=== PATIENT | male | born 1950 | race Caucasian/White ===

== ENCOUNTER → 2022-03-28 | Outpatient (CLI) | payer MEDICARE, OTHER, SELFPAY ==
--- NOTE | 2022-03-28 06:51 | CT_ITS ---
PROCEDURE: CT RIGHT KNEE WITHOUT CONTRAST REASON FOR EXAM: Male, 71 years old. Preoperative planning for the MakoPlasty Robotic knee surgery. Knee pain. TECHNIQUE: Transaxial CT of the hip, knee and ankle were obtained. Coronal and sagittal reconstruction images of the knee were provided. Individualized dose optimization techniques were used for this CT. COMPARISON: None. FINDINGS: Standard protocol for the preoperative planning for the MakoPlasty robotic knee surgery was performed. There is mild osteoarthrosis of the hip and knee. CT/Extremity Lower without Contra IMPRESSION: Preoperative MakoPlasty Robotic knee surgical CT evaluation with findings as described above. Electronically Signed: Eric Whitten, at 10:35 EDT ,
== END | disposition home or self-care (01) ==
PROVIDERS: PCP Family Medicine; Referring Provider Orthopaedic Surgery; Visit Provider Orthopaedic Surgery
DX: M17.11 Unilateral primary osteoarthritis, right knee (principal)
CPT/HCPCS: 73700

== ENCOUNTER → 2022-04-04 | Outpatient (CLI) | payer MEDICARE, OTHER, SELFPAY ==
--- NOTE | 2022-04-04 12:05 | EKG12_ITS ---
Test Reason : PREOP Blood Pressure : / mmHG Vent. Rate : 057 BPM Atrial Rate : 057 BPM P-R Int : 184 ms QRS Dur : 096 ms QT Int : 432 ms P-R-T Axes : 041 -09 019 degrees QTc Int : 420 ms Sinus bradycardia Otherwise normal ECG Confirmed by CÉSAR EDWARDS, CHANELL ([id number]), newspaper or periodical editor CAESAR GILLIAM ([id number]) on 04/05/2022 8:03:06 AM Referred By: JAMAL Confirmed By:GERARDO LINDSEY MD
[2022-04-04 12:26] LABS: Absolute Lymphocyte Count 1.36 X10^3/uL (0.83-4.51); Absolute Neutrophil Count 3.3 X10^3/uL (2.0-7.7); Basophil# 0.06 X10^3/uL; Basophil% 1.1 % (0-1); Eosinophils% 3.6 % (0-5); Hematocrit 43.6 % (40-54); Hemoglobin 14.9 g/dL (13.0-16.5); Lymphocyte # 1.36 X10^3/ul (0.83-4.51); Lymphocyte % 24.3 % (19-41); Mean Corp Hgb Conc 34.2 g/dL (32-36); Mean Corpuscular Hgb 32.4 pg (27.0-32.0); Mean Corpuscular Volume 94.8 fL (80-94); Mean Platelet Vol. 8.7 fl (6.2-12.0); Monocyte# 0.69 X10^3/uL; Monocyte% 12.3 % (0-10); NRBC Flagged by Analyzer 0 % (0-5); Neutrophil # 3.28 X10^3/uL (2.7-7.7); Neutrophil % 58.5 % (47-70); Platelet Count 233 K/mm3 (150-450); RBC Distribution Width CV 11.9 % (11.6-14.6); RBC Distribution Width SD 41.4 fl (35.1-43.9); White Blood Count 5.6 K/mm3 (4.4-11.0)
[2022-04-04 12:55] LABS: ALB/GLOB Ratio 1.1 RATIO (0.9-2.4); AST(SGOT) 27 U/L (15-37); Alanine Aminotransfer ALT/SGPT 40 U/L (16-61); Albumin, Serum 3.6 g/dL (3.2-5.0); Alkaline Phosphatase 71 U/L (45-117); Anion Gap 5 (5-15); BUN 14 mg/dL (7-18); BUN/Creat Ratio 13.2 RATIO (10-20); Calcium,Total 8.7 mg/dL (8.5-10.1); Chloride 107 mmol/L (98-107); Cholesterol 163 mg/dL (200); Creatinine, Serum 1.06 mg/dL (0.70-1.30); EST Glomerular Filtration Rate 74 mL/min (>60); Est Glom Filt Rate - Afr Amer 89 mL/min (>60); Globulin 3.3 g/dL (2.2-4.2); Glucose 101 mg/dL (74-106); High Density Lipoprotein 57 mg/dL; Potassium 4.5 mmol/L (3.5-5.1); Protein, Total 6.9 g/dL (6.4-8.2); Sodium Level 141 mmol/L (136-145); Triglycerides 88 mg/dL; Very Low Density Lipoprotein 18 mg/dL (5-40)
== END | disposition home or self-care (01) ==
PROVIDERS: Physician Assistant; PCP Family Medicine; Visit Provider Orthopaedic Surgery
DX: Z01.810 Encounter for preprocedural cardiovascular examination (principal); E11.9 Type 2 diabetes mellitus without complications; I10 Essential (primary) hypertension
CPT/HCPCS: 36415; 80053; 80061; 83036; 85025; 93005

== ENCOUNTER → 2022-04-23 | Outpatient (CLI) | payer MEDICARE, OTHER, SELFPAY ==
--- NOTE | 2022-04-23 15:04 | RAD_ITS ---
STUDY: X-RAY CHEST REASON FOR EXAM: Male, 71 years old. ACUTE COUGH TECHNIQUE: PA and lateral. COMPARISON: 06/23/2017. FINDINGS: LUNGS: No consolidation. No pneumothorax. MEDIASTINUM: Unremarkable. CARDIAC SILHOUETTE: Not enlarged. BONES AND SOFT TISSUES: No acute abnormalities. RAD/Chest PA and Lateral IMPRESSION: No evidence of active intrathoracic disease. Electronically Signed: Lesia Maldonado MD at 7:56 EDT ,
== END | disposition home or self-care (01) ==
LOC: RAD 15:03
PROVIDERS: PCP Family Medicine; Referring Provider Physician Assistant; Visit Provider Physician Assistant
DX: R05.1 Acute cough (principal)
CPT/HCPCS: 71046

== ENCOUNTER → 2022-05-07 | Outpatient (CLI) | payer MEDICARE, OTHER, SELFPAY ==
--- NOTE | 2022-05-06 15:22 | KNEE_PTH ---
PATIENT: SWETA STERLING LOC: [facility] U#:[id number] AGE/SX: 71/M ROOM: RE05/07/[address]: Dr. Tyler Sher DO : 1950 BED: DIS: 05/07/2022 SPEC #: [id number] RECD: 05/07/22 14:21 STATUS: JOI REAlessandro #: [id number] JAQUELINE: 05/06/22 15:[address]: Tyler Sher DEPT: SURGICAL PATHOLOGY RECD BY: Annita Spaulding ENTERED: 05/08/22 11:48 SP TYPE: TOTAL KNEE OTHR DR: Dr. Elver Whitmore MD [facility] Tissues: Knee, NOS Procedures: Decalcification bone/plaque Surgery Specimen Level IV HEADER OPERATION: Right total knee arthroplasty PRE-OP DIAGNOSIS: Unilateral primary osteoarthritis, right knee TISSUE SUBMITTED: Right knee bone and tissue MICROSCOPIC DIAGNOSIS Bone and soft tissue, right knee, total knee replacement/resection: Pieces of bone with degenerative osteoarthritic changes. Fibroadipose tissue, fibroconnective tissue and reactive synovial tissue. RAMONE:adilia 05/13/2022 MICROSCOPIC DESCRIPTION Slides are reviewed. GROSS DESCRIPTION Received is one container designated bone and soft tissue right knee. The specimen consists of multiple fragments of ron-yellow bone measuring in aggregate 11 x 9 x 4 cm. Also in the specimen container are multiple fragments of yellow-white soft tissue measuring in aggregate 9 x 7 x 3 cm. A number of bony fragments contain articular surfaces consistent with tibial plateau and femoral condyle and displaying prominent osteophyte formation, eburnation, and bone erosion. Consulting Marine Engineer sections are submitted in two cassettes as follows: 1 - soft tissue, 2 - bone after decalcification. / RAMONE:susi 05/08/2022 TC:5 [facility]: [id number], [id number]
== END | disposition home or self-care (01) ==
LOC: LABSPEC 14:36
PROVIDERS: PCP Family Medicine; Visit Provider Orthopaedic Surgery
DX: M17.11 Unilateral primary osteoarthritis, right knee (principal)
CPT/HCPCS: 88305; 88311

== ENCOUNTER 2022-05-10 01:39 | Emergency (ER) | payer MEDICARE, OTHER, SELFPAY ==
[2022-05-10 01:41] VITALS: BP 162/83; PULSE 84; RESP 15; TEMP 36.7; O2SAT 100; BMI 29.5
--- NOTE | 2022-05-10 02:00 | RAD_ITS ---
STUDY: X-RAY - ABDOMEN/PELVIS REASON FOR EXAM: Male, 71 years old. constipation TECHNIQUE: AP supine. 3 images. COMPARISON: None. FINDINGS: The bowel gas pattern is normal. There is no bowel obstruction. Moderate amount of stool in the colon. Sensitivity for free air is limited on supine view. No abnormal mass or calcification is seen. Lung bases are not well assessed. RAD/Abdomen Single View IMPRESSION: No acute findings. Electronically Signed: Lesia Maldonado MD at 2:20 EST ,
--- NOTE | 2022-05-10 02:10 | ED.VIS.GI ---
HPI HPI - GI History of Present Illness Chief Complaint: Constipation Informant: patient and spouse/S.O. Abdominal Pain/Flank Pain Onset: Days Context: Gradual Onset Timing: Continuous Quality: Cramping Location: Diffuse Current Severity: Mild Maximum Severity: Mild Worsened by: Nothing Relieved by: Nothing Nausea/Vomiting/Emesis GI Symptom: Negative for Nausea or Vomiting Diarrhea/Melena/Hematochezia GI Symptom: Negative for Diarrhea, Melena or Hematochezia Associated Symptoms Associated Symptoms: Negative for Dysuria or Frequency Narrative Narrative: 71-year-old male who had a total knee replacement on the right done at [facility] on Friday. He has not had a bowel movement since that time. He is on oxycodone due to the knee replacement. States has been taken Senokot without any relief. He says he feels full with abdominal cramping and discomfort. No fever. No dysuria. Prior similar symptoms: Yes Recent Illness/Hospitalization: No PFSH PFSH Medical History no medical history no medical history Home Medications acetaminophen 325 mg tablet 650 mg PO Q6H PRN PRN Mild Pain (scale 0-3)/T>100.7 #20 tabs 06/24/17 [Rx Last Taken Unknown] oseltamivir 75 mg capsule 75 mg PO BID #8 caps 06/24/17 [Rx Last Taken Unknown] Allergy/AdvReac Type Severity Reaction Status Date / Time grape Allergy Anaphylaxis Verified 04/29/15 11:05 nut - unspecified [nut] Allergy Anaphylaxis Verified 04/29/15 11:05 lisinopril AdvReac Other Verified 05/10/22 01:41 Social History Smoking Status: Former smoker ROS ROS ED ROS Narrative Constipation. Review of Systems ROS Unobtainable: Denies due to encephalopathy Constitutional Constitutional ED: Denies chills or fever(s) ENT ENT ED: Denies ear pain Cardiovascular Cardiovascular: Denies chest pain Respiratory/Chest Respiratory/Chest: Denies cough Gastrointestinal Gastrointestinal: Reports abdominal pain and constipation; Denies diarrhea, melena, nausea or vomiting Genitourinary Genitourinary ED: Denies dysuria or hematuria Musculoskeletal Musculoskeletal: Denies arthralgias Integumentary Denies abscess Neurologic Neurologic: Denies headache(s) Psychiatric Psychiatric: Denies anxiety Endocrine Endocrinology: Denies polydipsia Hematologic/Lymphatic Hematologic/Lymphatic: Denies easy bleeding Allergic/Immunologic Allergic/Immunologic ED: Denies mouth swelling, tongue swelling or urticaria EXAM Physical Exam Narrative Exam Narrative: Well-appearing 71-year-old male. Vital signs stable afebrile. H EENT exam unremarkable. Moist mucous membranes. Neck nontender no lymphadenopathy. Lungs clear to auscultation. Heart regular rhythm rate about 85 no murmur. Abdomen soft nondistended normal bowel sounds no peritoneal signs. No pulsatile mass. No hernia. No obstruction. Moving all 4 extremities. Status post right knee replacement. Normal research programmer strength. Normal dorsi plantar flexion. Patient is awake and alert. No focal motor deficits. Const Vital Signs: 05/10/22 01:41 Temperature 98.1 F Temperature Source Oral Pulse Rate 84 Respiratory Rate 15 Blood Pressure 162/83 H Blood Pressure Mean 109 Pulse Ox 100 Oxygen Delivery Method Room Air Positive well nourished and well developed; Negative for obese, cachectic, contractures or unkempt General Appearance ED: well developed and NAD; Negative for unkempt, cachectic, contractures or pallor Nutritional Appearance: Negative for cachectic or obese HEENT Reports moist mucous membranes normocephalic and atraumatic; Negative for trauma or tenderness Eyes PERRL and EOMs intact bilaterally General Eye ED: Negative for pale conjunctiva or scleral icterus Neck no lymphadenopathy, supple and no JVD General: Negative for tenderness Carotids: Negative for other Lymph Lymphatic: Negative for other Resp normal respiratory effort and clear to auscultation bilaterally Effort and Inspection: Negative for respiratory distress Auscultation: Negative for rales, rhonchi or wheezes Cardio regular rate, regular rhythm, S1 normal heart sound, S2 normal heart sound and no murmurs Rate: Negative for bradycardia Rhythm: Negative for abnormal rhythm GI non-tender, non-distended and no masses Inspection: Negative for abdominal distention Auscultation: normoactive bowel sounds Palpation: soft; Negative for tender, guarding or rigid Back/Spine no CVA tenderness General Back: Negative for CVA tenderness Cervical Spine: Negative for cervical spine tenderness Thoracic Spine / Upper Back: Negative for thoracic spinal tenderness Extremity Negative for full ROM Extremity Narrative: Status post right knee replacement. General Extremety ED: Yes edema General Extremity: edema Neuro CN's II-XII intact bilaterally and moves all extremities Sensorium / Orientation: alert, oriented to person, oriented to place and oriented to time; Negative for orientation impaired, confused or lethargic Motor Exam: strength 5/5 throughout Psych mental status grossly normal and thought process normal Appearance: Negative for unkempt Attitude: No agitated Mood & Affect: Negative for depressed, anxious or tearful Skin no wounds General Skin Exam: Negative for jaundice or pallor Lesions: no lesions Rashes: no rashes Trauma: Negative for abrasion Nails: Negative for discolored MDM MDM MDM Narrative Medical decision making narrative: 71-year-old male complaining of constipation since he had knee replacement surgery has been on pain medication since Friday. No nausea or vomiting. Clinically is not obstructed. Plain x-rays consistent with constipation. No obstruction. He will be treated with a soapsuds enema. Patient did have several small bowel movements after the soapsuds enema. He will be discharged home with [facility]. On repeat exam he is doing well at 3:30 AM. Radiography Diagnostic Testing: Clinical Impression(s) from Imaging Studies KUB X-Ray 05/10/22 02:00 IMPRESSION: No acute findings. Electronically Signed: Lesia Maldonado MD at 2:20 EST , KUB, single view, interpreted by myself shows increased stool consistent with constipation. No bowel obstruction. No free air. Discharge Plan Triage Chief Complaint: Constipation ED Provider: Phil Beltre Dx/Rx/DC Orders Clinical Impression: Acute constipation Instructions: ED Constipation (Adult) Prescriptions: No Action acetaminophen 325 MG tablet 650 mg PO Q6H PRN PRN (Reason: Mild Pain (scale 0-3)/T>100.7) Qty: 20 0RF oseltamivir 75 MG capsule 75 mg PO BID Qty: 8 0RF Primary Care Provider: Elver Whitmore Referrals: Elver Whitmore MD [Primary Care Provider] - 3-5 Days if not improving Activity Restrictions/Additional Instructions: Plenty of fluids and rest. Prune juice. Stool softeners and increase your fiber intake. Fiber crackers are also a good source of fiber. Pain meds as needed but understand a day will slow down your bowel and increase your constipation. Follow-up with your doctor if not proving or return if worse. Disposition Disposition: Home, Self Care
[2022-05-10] MEDS: Electrolyte Solution/Peg's 4000 ML 1000 ML PO (03:45)
== END 2022-05-10 03:46 | disposition home or self-care (01) ==
PROVIDERS: Emergency Provider Emergency Medicine; PCP Family Medicine; Visit Provider Emergency Medicine
DX: K59.00 Constipation, unspecified (principal); Z87.891 Personal history of nicotine dependence
CPT/HCPCS: 99284; 74018

== ENCOUNTER 2022-05-10 09:20 | Emergency (ER) | payer MEDICARE, OTHER, SELFPAY ==
[2022-05-10 09:21] VITALS: BP 156/86; PULSE 82; RESP 33; TEMP 37.2; O2SAT 100; BMI 29.7
[2022-05-10 09:24] VITALS: O2SAT 100
--- NOTE | 2022-05-10 09:24 | EKG12_ITS ---
Test Reason : SOB Blood Pressure : / mmHG Vent. Rate : 077 BPM Atrial Rate : 077 BPM P-R Int : 174 ms QRS Dur : 092 ms QT Int : 400 ms P-R-T Axes : 049 -07 003 degrees QTc Int : 452 ms Normal sinus rhythm Nonspecific T wave abnormality Abnormal ECG Confirmed by YARI EDWARDS, JONN ([id number]), editorial writer GEENA POLLOCK ([id number]) on 05/14/2022 7:26:56 AM Referred By: LUKAS Confirmed By:JONN GREENBERG MD
--- NOTE | 2022-05-10 09:28 | ED.VIS.DYS ---
HPI History of Present Illness Chief Complaint: Shortness of Breath Informant: patient and EMS Onset/Context/Timing Onset: Today Narrative Narrative: Increasing dyspnea this morning. Denies cough. States having tingling fingers around his mouth. Per EMS hyperventilating. Please see yesterday for constipation he is 1 week postop elective right total knee arthroplasty followed by Dr. Sher. Denies any increasing leg swelling. Denies history of asthma or COPD. He is on baby aspirin twice a day for DVT prophylaxis. Denies chest pain however states sweaty. He does report abdominal discomfort he has had a few bowel movements since being seen yesterday. Is given soapsuds enemas. Denies fevers. EMS pulse ox 100% on room air. He denies any cardiac history. Denies chest pains. PFSH PFS Medical History HTN (hypertension) Home Medications amlodipine 5 mg tablet 5 mg PO DAILY 05/10/22 [History Last Taken Unknown] apixaban 5 mg (74 tabs) tablets in a dose pack (EliMobileSpan DVT-PE Treat 30D Start) 5 mg PO BID #74 tabs 05/10/22 [Rx Last Taken Unknown] oxycodone 5 mg tablet 5 mg PO Q6H PRN Pain 05/10/22 [History Last Taken Unknown] Allergy/AdvReac Type Severity Reaction Status Date / Time grape Allergy Anaphylaxis Verified 05/10/22 09:21 nut - unspecified [nut] Allergy Anaphylaxis Verified 05/10/22 09:21 lisinopril AdvReac Other Verified 05/10/22 09:21 Surgical History History of left knee replacement Social History Smoking Status: Former smoker ROS ROS ED Constitutional Constitutional ED: Denies chills, fever(s) or sweats Eyes Eyes: Denies change in vision ENT ENT ED: Denies dysphagia or sore throat Cardiovascular Cardiovascular: Denies chest pain, leg edema, palpitations or racing heartbeat Respiratory/Chest Respiratory/Chest: Reports dyspnea; Denies cough or dyspnea on exertion Gastrointestinal Gastrointestinal: Denies abdominal pain, diarrhea, nausea or vomiting Genitourinary Genitourinary ED: Denies dysuria, hematuria or urinary frequency Musculoskeletal Musculoskeletal: Denies back pain, extremity pain or neck pain Integumentary Denies rash or wounds Neurologic Neurologic: Reports paresthesias; Denies headache(s) or weakness EXAM Physical Exam Const Vital Signs: 05/10/22 09:21 05/10/22 09:24 05/10/22 10:24 Temperature 99.0 F Temperature Source Temporal Pulse Rate 82 69 Respiratory Rate 33 H 21 H Respiratory Effort Short of Breath Respiratory Depth Normal Respiratory Pattern Normal Blood Pressure 156/86 H 181/97 H Blood Pressure Mean 109 125 Pulse Ox 100 99 Oxygen Delivery Method Room Air Room Air Room Air 05/10/22 12:21 Temperature Temperature Source Pulse Rate 84 Respiratory Rate 17 Respiratory Effort Respiratory Depth Respiratory Pattern Blood Pressure 157/78 H Blood Pressure Mean Pulse Ox 95 Oxygen Delivery Method Positive well nourished and well developed Constitutional Narrative: Anxious, mild hyperventilation General Appearance ED: well developed HEENT Reports moist mucous membranes normocephalic and atraumatic Eyes PERRL, EOMs intact bilaterally and conjunctivae normal General Eye ED: Yes normal appearance of both eyes Neck no lymphadenopathy and supple General: Negative for tenderness Chest Wall Chest: Negative for tenderness Resp normal respiratory effort and normal air movement Effort and Inspection: symmetric chest movement; Negative for respiratory distress Cardio regular rate, regular rhythm and no murmurs Peripheral Pulses: pulses 2+ throughout GI normal to inspection, nondistended, normoactive bowel sounds GI Narrative: mild TTP LLQ Palpation: Negative for guarding or rebound tenderness present Back/Spine no CVA tenderness and no thoracic nor lumbar tenderness Extremity Extremity Narrative: Mild right lower extremity swelling from postop. Pulses were intact. General Extremety ED: Yes edema and tenderness General Extremity: edema Neuro oriented x3 and no sensory deficits noted Sensorium / Orientation: awake and alert Skin Skin Narrative: Right knee with lalo clean, dry, intact. No calf tenderness. Distal pulses intact. MDM MDM MDM Narrative Medical decision making narrative: Patient sudden dyspnea, postop elective right total knee arthroplasty. No calf tenderness however DVT studies were negative. Pulses intact. EKG sinus rhythm with nonspecific findings. Patient's paresthesias likely from hyperventilation. Symmetric breath sounds. Rapid COVID-negative. Elevated at 1.06. D-dimer obtained troponin negative. Patient mild abdominal discomfort. CTA chest will be obtained along with abdominal pelvis for further evaluation. 1115: CT findings positive for small filling defects left lower lobe. Abdominal scans were negative. Reevaluation patient updated. He had a large bowel movement improving his abdominal symptoms. There is no gross bleeding from the stools. Patient will be able ambulated with a pulse ox prior to disposition. Patient ambulated pulse ox above 92%, no respiratory distress. he actually reports he felt better walking. He is started on Eliquis. Paresthesias have improved. I did speak with his surgeon Dr. Sher and updated on the findings. He will keep his follow-up on the . Also spoke with his PCP Dr. Whitmore and updated, he will see the office next week. Patient will monitor for any bleeding issues. He will avoid NSAIDs now since he is on Eliquis. Return precautions. All questions were answered. Lab Data Attestation: I reviewed the patient's lab results. Labs: Laboratory Results - last 24 hr 05/10/22 05/10/22 05/10/22 09:02 09:02 09:02 WBC 9.3 RBC 3.79 L Hgb 12.2 L Hct 34.7 L MCV 91.6 MCH 32.2 H MCHC 35.2 RDW Std Deviation 40.0 RDW Coeff of Sugey 11.9 Plt Count 282 MPV 9.4 Immature Gran % (Auto) 0.500 Neut % (Auto) 66.3 Lymph % (Auto) 23.4 Loup % (Auto) 8.9 Eos % (Auto) 0.4 Baso % (Auto) 0.5 Absolute Neuts (auto) 6.2 Absolute Lymphs (auto) 2.17 Nucleated RBC % 0 PT 13.2 INR 1.0 APTT 40.5 H D-Dimer Quant (PE/DVT) 1.06 H* Sodium 138 Potassium 3.3 L Chloride 103 Carbon Dioxide 23.0 Anion Gap 12 BUN 16 Creatinine 0.97 Estim Creat Clear Calc 74.21 Est GFR (MDRD) Af Amer 98 Est GFR (MDRD) Non-Af 81 BUN/Creatinine Ratio 16.4 Glucose 114 H Calcium 9.1 Total Bilirubin 1.50 H AST 39 H ALT 44 Alkaline Phosphatase 62 Troponin I High Sens 8 Total Protein 7.1 Albumin 3.4 Globulin 3.7 Albumin/Globulin Ratio 0.9 Radiography Diagnostic Testing: Clinical Impression(s) from Imaging Studies Chest CTA 05/10/22 10:18 IMPRESSION: Small filling defects in branches of the left lower lobe pulmonary artery. Electronically Signed: Edvin Mosqueda MD at 11:06 EST , Abdomen/Pelvis CT 05/10/22 10:29 IMPRESSION: Diffuse fatty infiltration of the liver. Multiple bilateral renal parapelvic cysts. 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 Distended urinary bladder and prostatic enlargement. Electronically Signed: Edvin Mosqueda MD at 11:02 EST , EKG Initial EKG: Attestation: I personally reviewed and interpreted this EKG as follows: Comments: Sinus rate of 77, no ST changes isolated T wave version leads III, nonspecific. Discharge Plan Triage Chief Complaint: Shortness of Breath ED Provider: Brigido Jon Dx/Rx/DC Orders Clinical Impression: Pulmonary embolism on left, Hyperventilation syndrome, Constipation, Post-operative state, Status post total knee replacement, right Instructions: Embolism Pulmonary Dc Prescriptions: New Eliquis DVT-PE Treat 30D Start 5 mg (74 tabs) tablets,dose pack 5 mg PO BID Qty: 74 0RF No Action amlodipine 5 mg tablet 5 mg PO DAILY Label Comments: take 1 tablet by mouth once daily oxycodone 5 mg tablet 5 mg PO Q6H PRN (Reason: Pain) Label Comments: TAKE 1-2 TABLETS BY MOUTH EVERY 4 HOURS Primary Care Provider: Elver Whitmore Referrals: Tyler Sher DO [Med Staff - Active Staff] - Keep Nikole appointment Elver Whitmore MD [Primary Care Provider] - 3-5 Days Activity Restrictions/Additional Instructions: Small segmental left lower lobe PE. CT abdomen pelvis negative for acute process. You are having bowel movements now. Continue stool softeners with pain medicines. Take Eliquis as prescribed avoid NSAIDs which includes ibuprofen Advil Aleve while on Eliquis. Follow-up with Dr. Whitmore next week. Keep scheduled appointment with Dr. Sher. Disposition Disposition: Home, Self Care Discharge Date/Time: 05/10/22 12:35
--- NOTE | 2022-05-10 09:30 | VDLE_ITS ---
Reason For Study: Shortness of breath RIGHT LEFT GSV is normal. CFV is compressible, spontaneous, phasic, CFV is compressible, spontaneous, phasic, competent, and demonstrates normal competent and demonstrates normal augmentation. augmentation. FV is compressible, spontaneous, phasic, competent and demonstrates normal augmentation. POP V is compressible, spontaneous, phasic, competent and demonstrates normal augmentation. T/P Trunk is compressible. PTV is compressible. RT PerV is compressible. Procedure This is a venous duplex using B-mode, color flow and spectral Doppler. Exam performed portable in ED. A preliminary report was called and/or faxed to Dr. Jon. VL/Venous Duplex US, Unilateral Interpretation Summary Deep veins of the right lower extremity are patent and compressible segmentally . There is no evidence of right lower extremity deep vein thrombosis. The right great sapheno us vein appears patent and compressible segmentally. Ordering Physician: Brigido Jon Referring Physician: Elver Whitmore Performed By: Joseline Jules RVT
[2022-05-10 09:43] LABS: Absolute Lymphocyte Count 2.17 X10^3/uL (0.83-4.51); Absolute Neutrophil Count 6.2 X10^3/uL (2.0-7.7); Basophil# 0.05 X10^3/uL; Basophil% 0.5 % (0-1); Eosinophil# 0.04 X10^3/uL; Eosinophils% 0.4 % (0-5); Hematocrit 34.7 % (40-54); Hemoglobin 12.2 g/dL (13.0-16.5); Lymphocyte # 2.17 X10^3/ul (0.83-4.51); Lymphocyte % 23.4 % (19-41); Mean Corp Hgb Conc 35.2 g/dL (32-36); Mean Corpuscular Hgb 32.2 pg (27.0-32.0); Mean Corpuscular Volume 91.6 fL (80-94); Mean Platelet Vol. 9.4 fl (6.2-12.0); Monocyte# 0.83 X10^3/uL; Monocyte% 8.9 % (0-10); NRBC Flagged by Analyzer 0 % (0-5); Neutrophil # 6.15 X10^3/uL (2.7-7.7); Neutrophil % 66.3 % (47-70); Platelet Count 282 K/mm3 (150-450); RBC Distribution Width CV 11.9 % (11.6-14.6); Red Blood Count 3.79 M/mm3 (4.6-6.2); White Blood Count 9.3 K/mm3 (4.4-11.0)
[2022-05-10 09:55] LABS: ALB/GLOB Ratio 0.9 RATIO (0.9-2.4); AST(SGOT) 39 U/L (15-37); Alanine Aminotransfer ALT/SGPT 44 U/L (16-61); Albumin, Serum 3.4 g/dL (3.2-5.0); Alkaline Phosphatase 62 U/L (45-117); Anion Gap 12 (5-15); BUN 16 mg/dL (7-18); BUN/Creat Ratio 16.4 RATIO (10-20); Calcium,Total 9.1 mg/dL (8.5-10.1); Chloride 103 mmol/L (98-107); Creatinine, Serum 0.97 mg/dL (0.70-1.30); EST Glomerular Filtration Rate 81 mL/min (>60); Est Glom Filt Rate - Afr Amer 98 mL/min (>60); Estimated Creatinine Clearance 74.21 ml/min; Globulin 3.7 g/dL (2.2-4.2); Glucose 114 mg/dL (74-106); Potassium 3.3 mmol/L (3.5-5.1); Protein, Total 7.1 g/dL (6.4-8.2); Sodium Level 138 mmol/L (136-145); Troponin-I HS 8 pg/mL (3.0-78.0)
[2022-05-10 09:56] LABS: Prothrombin Time (Protime)PT. 13.2 SECONDS (11.7-14.9)
[2022-05-10 09:57] LABS: Partial Thromboplast Time 40.5 Seconds (24.1-36.2)
[2022-05-10 10:13] LABS: D-Dimer Quantitative (DVT/PE) 1.06 FEU/ug/m (0.27-0.49)
--- NOTE | 2022-05-10 10:18 | CT_ITS ---
STUDY: CTA CHEST REASON FOR EXAM: Male, 71 years old. Shortness of breath -- post op dyspnea, lower abd pain RADIATION DOSAGE (If Supplied By Facility): CTDIvol = ( 15.40 ) mGy, DLP = ( 809.28 ) mGycm TECHNIQUE: The examination was performed with the intravenous administration of IV 100mL Isovue-370. Post-processing of the angiographic images was performed, with multiplanar reformation and 3D reconstruction. Individualized dose optimization techniques were used for this CT. COMPARISON: None. FINDINGS: Small intraluminal filling defects are seen in branches of the left lower lobe pulmonary artery in keeping with pulmonary emboli. Normal thoracic aorta and visualized great vessels. There is no demonstrated aortic dissection. Normal heart and pericardium. Normal mediastinum. Normal hilar regions. Normal visualized trachea and bronchi. The lungs are well expanded. Mild linear scarring and/or atelectasis at the left lung base. Normal pleura. Normal chest wall structures. Normal osseous structures. Fatty infiltration of the liver. Small hiatal hernia. Bilateral parapelvic renal cysts. CT/CTA Chest W/WO Contrast IMPRESSION: Small filling defects in branches of the left lower lobe pulmonary artery. Electronically Signed: Edvin Mosqueda MD at 11:06 [facility] ,
[2022-05-10 10:24] VITALS: BP 181/97; PULSE 69; RESP 21; O2SAT 99
--- NOTE | 2022-05-10 10:29 | CT_ITS ---
STUDY: CT ABDOMEN AND PELVIS WITH CONTRAST REASON FOR EXAM: Male, 71 years old. Abdominal pain and shortness of breath following recent orthopedic surgery. RADIATION DOSAGE (If Supplied By Facility): CTDIvol = ( 21.24 ) mGy, DLP = ( 1182.10 ) mGycm TECHNIQUE: Transaxial images were obtained from the dome of the diaphragm to the symphysis pubis without oral contrast. IV 100mL Isovue-370 was administered. Sagittal and coronal images were reconstructed. Individualized dose optimization techniques were used for this CT. COMPARISON: None. FINDINGS: The visualized lung bases are unremarkable. The visualized portions of the heart are within normal limits. There is decreased attenuation of the liver consistent with steatosis. Normal gallbladder and extrahepatic biliary system. Normal spleen. Normal pancreas. Normal bilateral adrenal glands. Multiple bilateral parapelvic renal cysts. There is a small hiatal hernia. Normal small intestine. There are multiple colonic diverticula consistent with diverticulosis. The appendix is visualized and appears normal. There is diffuse atherosclerotic calcification of the abdominal aorta, without a demonstrated aneurysm. 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 Normal inferior vena cava. Normal retroperitoneum. The urinary bladder is distended. There is enlargement of the prostate gland. The prostate measures 5 cm x 4 cm. This causes indentation of the bladder base. Central prostatic calcifications. There is a small umbilical hernia containing fat. There are degenerative changes of the visualized lumbar spine. Minimal anterolisthesis of L5 on S1 with spondylolysis of the pars interarticularis of the L5 vertebrae. CT/Abdomen/Pelvis W IV Cont ONLY IMPRESSION: Diffuse fatty infiltration of the liver. Multiple bilateral renal parapelvic cysts. 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 Distended urinary bladder and prostatic enlargement. Electronically Signed: Edvin Mosqueda MD at 11:02 EST ,
[2022-05-10 11:25] VITALS: O2SAT 100
[2022-05-10] MEDS: APIXABAN 5 MG TABLET 10 MG PO (11:47)
[2022-05-10 12:21] VITALS: BP 157/78; PULSE 84; RESP 17; O2SAT 95
== END 2022-05-10 12:35 | disposition home or self-care (01) ==
PROVIDERS: Emergency Provider Emergency Medicine; PCP Family Medicine; Visit Provider Emergency Medicine
DX: I26.99 Other pulmonary embolism without acute cor pulmonale (principal); R06.4 Hyperventilation; K59.00 Constipation, unspecified; I10 Essential (primary) hypertension; Z96.651 Presence of right artificial knee joint; Z79.899 Other long term (current) drug therapy; Z87.891 Personal history of nicotine dependence; Z79.82 Long term (current) use of aspirin
CPT/HCPCS: 71275; 74018; 74177; 80053; 84484; 85025; 85379; 85610; 85730; 87811; 93005; 93971; 99284; 99285; Q9967; A4216